=== PATIENT | female | born 1990 | race Caucasian/White ===

== ENCOUNTER → 2021-02-20 | Outpatient (CLI) | payer OTHER ==
[~2021-02-20] MED LIST: ALYACEN PO; FISH OIL 1,0001 EACH PO; LORATADINE10 MG PO; MUCINEX DM ER1 EACH PO; SYNTHROID112 MCG PO; TESSALON PERLE100 MG PO; ZYRTEC-D TABLE1 EACH PO
== END ==
LOC: KOH-I 10:38
DX: M54.5 Low back pain (principal)
CPT/HCPCS: 72110

== ENCOUNTER 2021-06-18 11:39 | Emergency (ER) | payer OTHER ==
[2021-06-18 12:28] LABS: HEMOGLOBIN 12.4 gm/dl (12.3-15.3); RED BLOOD COUNT 4.12 M/UL (4.00-5.10); WHITE BLOOD COUNT 8.6 K/UL (4.5-11.0)
[2021-06-18 13:00] LABS: BUN/CREATININE RATIO 17 (0-10)
== END 2021-06-18 16:37 | disposition home or self-care (01) ==
LOC: ER1 11:39
DX: R55 Syncope and collapse (principal); Z90.49 Acquired absence of other specified parts of digestive tract
CPT/HCPCS: 70450; 80053; 81001; 82550; 82553; 82962; 83605; 83874; 84484; 84703; 85007; 85027; 85379; 93005; 99284; J7030

== ENCOUNTER → 2021-10-09 | Outpatient (CLI) | payer OTHER | LOC: EMI 10:36 | DX: R56.9 Unspecified convulsions (principal) | CPT/HCPCS: 70551 ==

== ENCOUNTER → 2021-12-26 | Outpatient (CLI) | payer OTHER | LOC: KOH-I 11:05 | DX: M79.672 Pain in left foot (principal) | CPT/HCPCS: 73620 ==